=== PATIENT | male | born 1970 | race Caucasian/White ===

== ENCOUNTER 2022-11-21 10:19 | Inpatient (IN) | payer MEDICAID ==
[2022-11-12 14:40] LABS: BASOPHILS # (AUTO) 0.1 X10'3 (0-0.2); EOSINOPHILS # (AUTO) 0.1 X10'3 (0-0.9); EOSINOPHILS % (AUTO) 1.2 % (0-6); LYMPHOCYTES # (AUTO) 3.1 X10'3 (1.1-4.8); LYMPHOCYTES % (AUTO) 29.7 % (21-51); MEAN CORPUSCULAR HEMOGLOBIN 28.9 PG (27.0-31.0); MEAN CORPUSCULAR VOLUME 87.5 FL (78-98); MEAN PLATELET VOLUME 7.8 FL (7.4-10.4); MONOCYTES # (AUTO) 1.1 X10'3 (0-0.9); MONOCYTES % (AUTO) 10.6 % (2-12); NEUTROPHILS % (AUTO) 57.5 % (42-75); PRE OP HEMATOCRIT 44.4 % (42.0-52.0); PRE OP HEMOGLOBIN 14.7 g/dL (14.0-17.9); PRE OP PLATELET COUNT 349 X10'3 (140-440); RED BLOOD COUNT 5.08 X10'6 (4.70-6.10); RED CELL DISTRIBUTION WIDTH 14.1 % (11.5-14.5)
[2022-11-12 15:15] LABS: BLOOD UREA NITROGEN 14 MG/DL (7-18); BUN/CREATININE RATIO 16.9 (5.4-32.0); CHLORIDE 106 MMOL/L (99-107); CREATININE 0.83 MG/DL (0.60-1.10); PRE OP ANION GAP 6 (8-16); PRE OP GLUCOSE 138 MG/DL (70-104); PRE OP POTASSIUM 4.1 MMOL/L (3.4-5.1); PRE OP SODIUM 142 MMOL/L (135-145); TOTAL CARBON DIOXIDE 30.2 MMOL/L (24-32)
[2022-11-12 15:16] LABS: ALBUMIN/GLOBULIN RATIO 1.1 (1.1-1.5); ALKALINE PHOSPHATASE 92 IU/L (46-116); CALCIUM 9.5 MG/DL (8.5-10.1); PRE OP ALT 48 U/L (30-65); PRE OP AST 25 U/L (10-37); PRE OP BILIRUB, TOTAL 0.3 MG/DL (0.0-1.0); TOTAL PROTEIN 7.6 G/DL (6.4-8.2); eGFR > 90 ML/MIN
[~2022-11-21] VITALS: Ht 180.3 cm; Wt 108.9 kg
[2022-11-21] VITALS (22 sets, daily range): BP systolic 125–157; BP diastolic 73–108
[~2022-11-21 10:19] MED LIST: DILT240T12 PO; GABA600T13 PO; ceFAZolin inj. 2,000 MG in dextrose 5%-water 100 ML IV ONE; famotidine 20mg tablet PO ONE; meperidine/PF 25mg/ml syringe IV PRN; morphine 2 MG/ML inj. syringe IV PRN; morphine 4 MG/ML inj SYRINge IV PRN; ondansetron/PF 4mg/2ml inj IV PRN; proCHLORperazine 10 MG/2 ml inj IV PRN; ringers solution, lacted 1,000 ML IV SCH; tranexamic acid inj. 1,000 MG in normal saline IV soln 100ML IV ONE; vancomycin 1,500 MG in NS 300ml IV soln IV ONE
--- NOTE | 2022-11-21 10:25 | NUR ---
TOTAL JOINT CHARTING: COMPETED THE MUPIROCIN OINTMENT AND HIBICLENS SHOWERS X5 DAYS. READ THE BOOKLET. CSM'S TO LATA SIN. STRONG RADIAL PULSES. Addendum: 11/21/22 at 1316 by Matilda De La Paz RN Amended: Links added.
[2022-11-21] MEDS ORDERED: dexamethasone sod phosphate 4mg/ml inj. ONE (11:57)
[2022-11-21] MEDS ORDERED: sevoflurane 250ml liquid IH ONE (11:57)
[2022-11-21] MEDS ORDERED: LIDOcaine 1%/PF 5ML 10 MG/ML VIAL ONE (11:57)
[2022-11-21] MEDS ORDERED: fentaNYL/PF 50MCG/1 ML 2ML syringe ONE (12:05)
[2022-11-21] MEDS ORDERED: MIDAZolam 1 MG/ML 5ML VIAL ONE (12:05)
[2022-11-21] MEDS ORDERED: propofol inj 20 ML IV ONE (12:08)
[2022-11-21] MEDS ORDERED: ROPIVAcaine 0.5% (5mg/ml) 30ml vial ONE (12:08)
[2022-11-21] MEDS ORDERED: ondansetron/PF 4mg/2ml inj ONE (12:59)
[2022-11-21] MEDS ORDERED: ROPIVAcaine 0.2% (10 MG/5 ML) BOLUS INJECTION INTERSCALE PRN (13:20)
[2022-11-21] MEDS ORDERED: vancomycin 1,000mg inj ONE (13:58)
[2022-11-21] MEDS ORDERED: ROPIVAcaine 0.2%/PF PUMP/bolus 545 ML INTERSCALE SCH (14:00)
[2022-11-21] MEDS ORDERED: oxyCODONE IR 5mg (immed. release) tablet PO PRN (14:55)
[2022-11-21] MEDS ORDERED: acetaminophen 325mg tablet PO PRN (14:55)
[2022-11-21] MEDS ORDERED: diphenhydrAMINE 25mg capsule PO PRN ×2 (14:55)
[2022-11-21] MEDS ORDERED: bisacodyl 10mg suppository rectal RC PRN (14:55)
[2022-11-21] MEDS ORDERED: HYDROmorphone 1 mg/ml syringe IV PRN (14:55)
[2022-11-21] MEDS ORDERED: naloxone 0.4 mg/ml inj IV PRN (14:55)
[2022-11-21] MEDS ORDERED: HYDROmorphone inj. 0.5 MG/0.5 ML DISP.SYRIN IV PRN (14:55)
[2022-11-21] MEDS ORDERED: magnesium hydroxide 30ml (MOM) UD suspension PO PRN (14:55)
[2022-11-21] MEDS ORDERED: ondansetron/PF 4mg/2ml inj IV PRN (14:55)
--- NOTE | 2022-11-21 14:58 | NUR ---
Received from OR via BED, accompanied by Anesthesiologist and report given by AMY Anesthesiologist. PATIENT WAKING UP, DENIES PAIN, V/S WNL, SCD ON, 20G TO LEFT WRIST, RIGHT SHOULDER DRESSING C/D/I with POWDER PACK AND ARM SLING. ON Q PUMP CATHETER DRESSING C/D/I. LINARES CATHETER DRAINING CLEAR YELLOW URINE. Addendum: 11/21/22 at 1521 by Eric Powell RN Amended: Links added.
[2022-11-21] MEDS ORDERED: labetalol 20mg/4ml (5mg/ml) syringe IV PRN (15:30)
--- NOTE | 2022-11-21 16:38 | NUR ---
PATIENT HAS MET ALL CRITERIA FOR TRANSFER TO THE SURGICAL FLOOR. VSS. DRESSINGS INTACT. BED LOW, CALL LIGHT PRESENT AND 2 RAILS UP. RN PRESENT TO ACCEPT CARE OF PATIENT AND REPORT HAS BEEN CALLED. ALL QUESTIONS ANSWERED TO ACCEPTING RN. Addendum: 11/21/22 at 1647 by Eric Powell RN Amended: Links added.
[2022-11-21] MEDS: ceFAZolin/D5W- 1GM premix 50 ML IV SCH (17:41)
[2022-11-21] MEDS ORDERED: tranexamic acid inj. 1,090 MG in normal saline 100ml IV soln 89.1 ML IV ONE (18:00)
--- NOTE | 2022-11-21 18:00 | NUR ---
patient reports he is passing gas this evening.
--- NOTE | 2022-11-21 18:15 | NUR ---
report given to robin KRAMER
--- NOTE | 2022-11-21 18:30 | NUR ---
Patient in room [facility]. I have received report from EBONY KRAMER and had the opportunity to ask questions and assume patient care.
[2022-11-21] MEDS ORDERED: sennosides 8.6mg tablet PO SCH (21:00)
[2022-11-21] MEDS ORDERED: gabapentin 300mg capsule PO SCH (21:00)
[2022-11-21] MEDS: oxyCODONE IR 5mg (immed. release) tablet PO PRN (21:33)
[2022-11-22] MEDS: gabapentin 300mg capsule PO SCH ×2 (00:59→08:13)
[2022-11-22] MEDS: ceFAZolin/D5W- 1GM premix 50 ML IV SCH (00:59)
[2022-11-22] MEDS: oxyCODONE IR 5mg (immed. release) tablet PO PRN ×2 (05:41→09:19)
[2022-11-22 06:00] VITALS: BP 133/83
--- NOTE | 2022-11-22 06:50 | NUR ---
Problems reprioritized. Patient report given, questions answered & plan of care reviewed with SILVERIO KRAMER.
[2022-11-22] MEDS ORDERED: diltiazem CD 120mg capsule (once-daily) PO SCH (08:00)
[2022-11-22] MEDS ORDERED: aspirin 325mg tablet PO SCH (08:30)
--- NOTE | 2022-11-22 09:57 | NUR ---
Joint surgery consult: Pt s/p R shoulder surgery this admit per EMR. Pt seen by RD at bedside for written/verbal high protein diet ed w/ RD contact information provided. Pt reports has Ensures and vitamins stocked at home. RD encouraged pt to contact dietitian's if further nutrition questions/concerns. Addendum: 11/22/22 at [address] Amended: Links added.
[2022-11-22 10:00] VITALS: BP 132/94
[2022-11-22] MEDS ORDERED: celeCOXIB 100mg capsule PO SCH (20:00)
[2022-11-23] MEDS ORDERED: acetaminophen 325mg tablet PO PRN (14:55)
== END 2022-11-22 10:30 | disposition home or self-care (01) | DRG 322 ==
LOC: PAS IN 10:19 → SUR 3N 16:40
PROVIDERS: ADMIT Orthopaedic Surgery; ATTEND Orthopaedic Surgery
PROC: 3E0T3BZ Introduction of Anesthetic Agent into Peripheral Nerves and Plexi, Percutaneous Approach (ICD-10-PCS; 2022-11-21)
PROC: 3E0T33Z Introduction of Anti-inflammatory into Peripheral Nerves and Plexi, Percutaneous Approach (ICD-10-PCS; 2022-11-21)
PROC: 0RRJ0JZ Replacement of Right Shoulder Joint with Synthetic Substitute, Open Approach (ICD-10-PCS; principal; 2022-11-21 11:57)
DX: M19.011 Primary osteoarthritis, right shoulder (principal); I10 Essential (primary) hypertension; M65.811 Other synovitis and tenosynovitis, right shoulder
CPT/HCPCS: 36415; 73020; 80053; 82948; 85025; 87081; 97110; 97116; 97161; G0378; J0690; J1100; J2175; J2250; J2270; J2405; J2704; J2795; J3010; J3370; J3490; J7040; J7060; J7120